=== PATIENT | male | born 1990 | race Caucasian/White ===

== ENCOUNTER 2022-06-18 09:04 | Emergency (ER) | payer OTHER, MEDICAID, SELFPAY ==
[2022-06-18 09:47] VITALS: BP 111/70; PULSE 84; RESP 16; O2SAT 100; BMI 28.4
--- NOTE | 2022-06-18 10:55 | ED.WOUNDLAC ---
HPI - Wound/Laceration General Chief Complaint: Wound/Laceration Stated Complaint: Finger lac Time Seen by Provider: 06/18/22 10:15 Source: patient Mode of arrival: ambulatory History of Present Illness HPI narrative: 31-year-old male with no significant past medical history presenting to the ED complaining of laceration to left 5th digit x3 days S/P using knife at work. Reports works at a [employer] and accidentally slipped using knife. Denies injury to the area, numbness, tingling, weakness. Denies taking anticoagulation. Tetanus unknown Onset (ago): day(s) Related Data Previous Rx's Medication Instructions Recorded cephalexin 500 mg capsule 500 mg PO QID 7 days #28 caps 06/18/22 Allergies Allergy/AdvReac Type Severity Reaction Status Date / Time No Known Allergies Allergy Verified 06/18/22 10:57 Review of Systems Review of Systems: Constitutional:No Fever, No Chills ENT/Mouth: No Ear Pain, No Nasal Congestion, No sore throat, No Rhinorrhea Cardiovascular: No Chest Pain, No SOB Respiratory: No Cough, No Sputum Gastrointestinal: No Nausea, No Vomiting, No Diarrhea, No Constipation, No Abdominal pain Genitourinary: No Dysuria, No Urinary Frequency, No Urgency, No Flank Pain Musculoskeletal: No joint pain, No Myalgias, No Joint Swelling Skin: + Skin Lesions, No rash Neuro: No Weakness, No Numbness, No Paresthesias Yes all other systems are reviewed and are negative Constitutional: Constitutional: Reports as per [facility] Past Medical History Attestation statement: The following information was validated with the patient. Social History Social History Advance Directives: No Advance Directives Information Provided: No Physical Exam Vital Signs: Vital Signs: Last Vital Signs Pulse 84 06/18/22 09:47 Resp 16 06/18/22 09:47 BP 111/70 06/18/22 09:47 Pulse Ox 100 06/18/22 09:47 O2 Del Method 06/18/22 09:47 BMI result Body Mass Index 28.4 Const: General: cooperative, healthy appearing and no acute distress Orientation/consciousness: patient oriented x3 Limitations: no limitations HEENT: Head: Yes normal to inspection and Yes atraumatic Ears: hearing grossly normal bilaterally General nose exam: Normal external nose present Face and sinus: Yes normal facial exam Eyes: General: appearance normal, both eyes and all related structures EOM: EOMs intact bilaterally Neck: Neck: Yes normal visual inspection and Yes no meningeal signs Resp: Effort & Inspection: normal respiratory effort and no respiratory distress Cardio: Rate: regular rate Peripheral pulses: radial pulses present and ulnar radial pulses present Skin: Other: +1 cm laceration to palmar aspect left 5th digit, distal to DIP. No surrounding erythema, no fluctuance/induration or drainage. Full range of motion intact. NV intact Rashes: no rashes Neuro: General: patient oriented x3, tone normal and no meningeal signs Gait exam (Neuro): Normal gait present Extrem: General: Yes normal to inspection Medical Decision Making Medical Decision Making MDM Narrative: 31-year-old male with no significant past medical history presenting to the ED complaining of laceration to left 5th digit x3 days S/P using knife at work. On exam vital signs stable, NAD, nontoxic appearing, physical exam as above. Laceration to left 5th digit palmar aspect. Wound too old to close with sutures. No evidence of active infection, cellulitis at this time. Low suspicion for osteo or septic joint Will approximate with Steri-Strips and update tetanus Differential Diagnosis Differential Diagnoses: The differential diagnosis associated with the presentation includes As well Prescription Management I considered prescription management with: Antibiotic Discharge Plan Discharge Clinical Impression: Laceration Patient Disposition: Home, Self-Care Instructions: Finger Laceration (ED) Additional Instructions: Keep Steri-Strips on, dry and clean they will follow up on their own Keflex as an antibiotic please take as prescribed Please follow-up with your doctor. If area begins to look infected, is red, there is drainage your discharge/increasing pain or fever return to the ED Prescriptions: New cephalexin 500 mg capsule 500 mg PO QID 7 Days Qty: 28 0RF Referrals: Physician,Unknown J [Primary Care Provider] - 3 days Stand Alone Forms: Work/School Release
[2022-06-18 11:01] VITALS: BP 118/68; PULSE 78; RESP 16; TEMP 36.8; O2SAT 100
[2022-06-18] MEDS: Diphth,Pertus(ACell),Tet Adult 0.5 ML SYRINGE IM (11:09)
== END 2022-06-18 11:18 | disposition home or self-care (01) ==
PROVIDERS: Emergency Provider Emergency Medicine
DX: S61.217A Laceration without foreign body of left little finger without damage to nail, initial encounter (principal); S60.417A Abrasion of left little finger, initial encounter; W26.0XXA Contact with knife, initial encounter; Y93.9 Activity, unspecified; Y92.9 Unspecified place or not applicable; Y99.0 Civilian activity done for income or pay; Z23 Encounter for immunization
CPT/HCPCS: 90471; 90715; 99284

== ENCOUNTER 2023-12-17 11:23 | Emergency (ER) | payer MEDICAID, OTHER, SELFPAY ==
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
[2023-12-17 11:37] VITALS: BP 125/77; PULSE 66; RESP 17; TEMP 36.3; O2SAT 99; BMI 25.2
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
[2023-12-17 15:10] VITALS: BP 130/80; PULSE 70; RESP 16; TEMP 36.3; O2SAT 99
== END 2023-12-17 15:12 | disposition home or self-care (01) ==
PROVIDERS: Emergency Provider Emergency Medicine
DX: S39.012A Strain of muscle, fascia and tendon of lower back, initial encounter (principal); V47.5XXA Car driver injured in collision with fixed or stationary object in traffic accident, initial encounter; Y93.89 Activity, other specified; Y92.411 Interstate highway as the place of occurrence of the external cause; Y99.9 Unspecified external cause status
CPT/HCPCS: 72100; 72220; 99282; 99283

== ENCOUNTER 2024-04-21 09:07 | Emergency (ER) | payer MEDICAID, OTHER, SELFPAY ==
--- NOTE | ~2024-04-21 | XR_ITS ---
EXAMINATION: XR LUMBOSACRAL SPINE CLINICAL INFORMATION: pain COMPARISON: None available. TECHNIQUE: Three views of the lumbosacral spine. FINDINGS: The vertebral bodies and posterior elements are normal. The disc spaces are preserved and the vertebral alignment is normal. The paraspinal soft tissues are normal. XR/XR lumbar spine 2-3V IMPRESSION: Unremarkable examination. Electronically signed by: Veto Goff MD 04/21/2024 11:27 AM [facility]
--- NOTE | ~2024-04-21 | XR_ITS ---
EXAMINATION: XR SACRUM AND COCCYX CLINICAL INFORMATION: pain COMPARISON: None available. TECHNIQUE: 2 views of the sacrum and 2 views of the coccyx were obtained. FINDINGS: There are no fractures. No bone, joint or soft tissue abnormality is demonstrated. XR/XR sacrum coccyx min 2V IMPRESSION: Unremarkable examination. Electronically signed by: Veto Goff MD 04/21/2024 11:25 AM [facility]
[2024-04-21 09:10] VITALS: BP 99/52; PULSE 71; RESP 18; TEMP 36.6; O2SAT 98; BMI 27.1
--- NOTE | 2024-04-21 09:55 | ED.BACK ---
HPI - Back Pain/Injury General Chief Complaint: Back Pain/Injury Stated Complaint: back pain Time Seen by Provider: 04/21/24 09:17 Source: patient and RN notes reviewed Mode of arrival: ambulatory Limitations: no limitations History of Present Illness ED Provider: Rachel Paiz PA-C HPI Narrative: This is a 33-year-old male who presents emergency department with complaints of low back pain. Patient states that he has ongoing back pain for the last several weeks. He states that he has a very labor was drop which requires him to lift heavy boxes frequently. He denies any specific episode in which his back pain exacerbated. He states that the pain has worsened, states that the pain started in his low back and now is radiating upwards. He denies any fevers, chills, chest pain, shortness of breath, abdominal pain, nausea, vomiting or diarrhea. No saddle anesthesia. No urinary or bowel retention or incontinence. No history of IVDA. No other complaints or concerns at this time. MD elicited complaint: back pain Onset (ago): day(s) Timing: constant Quality: aching Location: lumbar spine and sacrum Radiation: none Exacerbating factors: movement Relieving factors: none Associated symptoms: denies other symptoms Related Data Previous Rx's ?Medication ?Instructions ?Recorded cephalexin 500 mg capsule 500 mg PO QID 7 days #28 caps 06/18/22 acetaminophen 650 mg 650 mg PO Q8H PRN pain #30 tabs 12/17/23 tablet,extended release (Tylenol 8 Hour) ibuprofen 600 mg tablet 600 mg PO Q6H PRN pain #30 tabs 12/17/23 lidocaine 5 % topical patch 1 patch topical DAILY #30 ea 12/17/23 (Lidoderm) cyclobenzaprine 10 mg tablet 10 mg PO TID PRN muscle spasm #10 04/21/24 tabs ibuprofen 600 mg tablet 600 mg PO Q6H PRN pain #30 tabs 04/21/24 lidocaine 5 % topical patch 1 patch topical DAILY #30 ea 04/21/24 (Lidoderm) Allergies Allergy/AdvReac Type Severity Reaction Status Date / Time No Known Allergies Allergy Verified 04/21/24 09:12 Review of Systems Review of Systems: Yes all other systems are reviewed and are negative Constitutional: Constitutional: Reports as per [facility] Social History Social History (Reviewed 01/17/23 @ 11:00 by MAXINE Reilly Alcohol intake: current Alcohol intake frequency: holidays/special occasions only Smoked in Last 30 Days: No Use of substances other than those prescribed or required for medical reasons: No Advance Directives: No Advance Directives Information Provided: Yes Physical Exam Vital Signs: Vital Signs: Last Vital Signs Temp 97.6 F 04/21/24 13:07 Pulse 57 04/21/24 13:07 Resp 16 04/21/24 13:07 BP 103/55 L 04/21/24 13:07 Pulse Ox 97 04/21/24 13:07 O2 Del Method Room Air 04/21/24 13:07 BMI result Body Mass Index 27.1 Const: General: cooperative, comfortable and no acute distress Orientation/consciousness: patient oriented x3 Limitations: no limitations HEENT: Head: Yes normal to inspection, Yes normocephalic and Yes atraumatic Ears: hearing grossly normal bilaterally General nose exam: Normal external nose present Face and sinus: Yes normal facial exam Mouth: Normal oral and palatal mucosa present, oropharynx normal and moist mucous membranes Throat: Yes posterior oropharynx normal Eyes: General: appearance normal, both eyes and all related structures Eyelids: Yes eyelids normal Conjunctivae: conjunctivae normal Sclerae: sclerae normal Pupils: Equal, round and reactive pupils present EOM: EOMs intact bilaterally Neck: Neck: Yes normal visual inspection, Yes full ROM and Yes no lymphadenopathy Lymphatic: no lymphadenopathy noted Chest: Chest palpation & inspection: normal inspection of the chest Resp: Effort & Inspection: normal respiratory effort and able to speak in complete sentences Auscultation: clear to auscultation bilaterally, no crackles, no rales, no rhonchi and no wheezes Cardio: Rate: regular rate Rhythm: regular rhythm Heart sounds: S1 normal heart sound present and S2 normal heart sound present GI: Inspection: Yes normal to inspection Back/Spine/Pelvis: Other: Patient has tenderness palpation along the lumbar paraspinous muscles with spasms noted. Skin: General skin exam: no rashes or lesions noted Trauma: no lacerations or abrasions Wounds: no wounds Neuro: General: patient oriented x3 and moves all extremities Cranial nerves: Yes Equal, round and reactive pupils present Extrem: General: Yes normal to inspection Right upper extremity: normal to inspection Left upper extremity: normal to inspection Right lower extremity: normal to inspection Left lower extremity: normal to inspection Medications Administered Discontinued Medications Generic Name Dose Route Start Last Admin Trade Name Chanda PRN Reason Stop Dose Admin Ketorolac Tromethamine 30 mg 04/21/24 10:09 04/21/24 10:13 Ketorolac Tromethamine 30 Mg/Ml Vial IM 04/21/24 10:10 30 mg ONCE ONE Administration Medical Decision Making Medical Decision Making [facility] Narrative: This is a 33-year-old male who presents emergency department with complaints of back pain. On arrival, vital signs revealing slight hypotensive at 99/52, he has no chest pain or shortness of breath. He has tenderness palpation along the lumbar paraspinous with muscle spasms noted. X-rays were performed revealing no acute bony abnormalities. Discussed findings with patient. He was medicated with Toradol, he is feeling much better. Given strict return precautions. Patient discharged on muscle relaxants, ibuprofen, and Lidoderm patches. Given strict return precautions. This patient presents with back pain most consistent with lumbago. Differential diagnoses includes lumbago versus musculoskeletal spasm / strain versus sciatica. No back pain red flags on history or physical. Presentation not consistent with malignancy (lack of history of malignancy, lack of B symptoms), fracture (no trauma, no bony tenderness to palpation), cauda equina syndrome (no bowel or urinary incontinence/retention, no saddle anesthesia, no distal weakness), renal colic, pyelonephritis (afebrile, no CVAT, no urinary symptoms). He will follow-up with his PCP. Patient stable for discharge Differential Diagnosis Differential Diagnoses: The differential diagnosis associated with the presentation includes See above Discharge Plan Discharge Clinical Impression: Strain of lumbar region Patient Disposition: Home, Self-Care Instructions: Back Pain (ED), Lower Back Exercises (ED) Additional Instructions: You were seen in the emergency department due to back pain. Please take prescribed medication as directed. Ibuprofen can help with pain. Lidoderm patches will also help, do not apply heat or ice to the patch directly. You may take muscle relaxants, Flexeril as needed for pain. Please be advised that this can cause drowsiness, do not drink alcohol or drive while taking this medication. Follow-up with your primary care physician. If any new or worsening symptoms occur including but not limited to numbness or tingling into your groin, loss of bladder or bowel control, please seek emergent care. Prescriptions: New ibuprofen 600 mg tablet 600 mg PO Q6H PRN (Reason: pain) Qty: 30 0RF cyclobenzaprine 10 mg tablet 10 mg PO TID PRN (Reason: muscle spasm) Qty: 10 0RF lidocaine [Lidoderm] 5 % adhesive patch,medicated 1 patch topical DAILY Qty: 30 0RF Rx Instructions: leave on most painful area for up to 12 hrs No Action cephalexin 500 mg capsule 500 mg PO QID 7 Days Qty: 28 0RF ibuprofen 600 mg tablet 600 mg PO Q6H PRN (Reason: pain) Qty: 30 0RF acetaminophen [Tylenol 8 Hour] 650 mg tablet extended release 650 mg PO Q8H PRN (Reason: pain) Qty: 30 0RF lidocaine [Lidoderm] 5 % adhesive patch,medicated 1 patch topical DAILY Qty: 30 0RF Rx Instructions: leave on most painful area for up to 12 hrs Stand Alone Forms: Work/School Release Interventions: ED Discharge Assessment Last Done: 04/21/24 13:07 Discharge Date/Time: 04/21/24 13:08 Print Language: Thai
[2024-04-21] MEDS: Ketorolac Tromethamine 30 MG/ML VIAL IM (10:13)
--- NOTE | 2024-04-21 10:15 | PC.NURSE ---
pt medicated per provider order. effectiveness pending. pt waiting to go to xray at this time.
[2024-04-21 13:01] VITALS: BP 103/55; PULSE 57; RESP 16; TEMP 36.4; O2SAT 97
[2024-04-21 13:07] VITALS: BP 103/55; PULSE 57; RESP 16; TEMP 36.4; O2SAT 97
== END 2024-04-21 13:08 | disposition home or self-care (01) ==
PROVIDERS: Emergency Provider Emergency Medicine
DX: S39.012A Strain of muscle, fascia and tendon of lower back, initial encounter (principal); X50.0XXA Overexertion from strenuous movement or load, initial encounter; Y93.89 Activity, other specified; Y92.512 Supermarket, store or market as the place of occurrence of the external cause; Y99.0 Civilian activity done for income or pay
CPT/HCPCS: 72100; 72220; 96372; 99284; J1885